=== PATIENT | male | born 1970 | race Caucasian/White ===

== ENCOUNTER → 2024-09-30 14:48 | Outpatient (REF) | payer BC, SELFPAY | LOC: HWRCS 14:48 | PROVIDERS: ATTENDING PHYSICIAN Nurse Practitioner; FAMILY PHYSICIAN Family Medicine | DX: I42.9 Cardiomyopathy, unspecified (principal); I44.7 Left bundle-branch block, unspecified | CPT/HCPCS: 93306 ==